=== PATIENT | female | born 1980 | race African-American/Black ===

== ENCOUNTER 2017-08-10 12:39 | Emergency (ER) | payer OTHER ==
[2017-08-10 12:55] VITALS: BP 121/63; PULSE 90; RESP 16; TEMP 98.1; O2SAT 99
--- NOTE | 2017-08-10 13:11 | RADRPT ---
EXAM DATE: 08/10/2017 1:09 PM EDT AGE/SEX: 36 years / Female INDICATIONS: Left ankle pain, fell CLINICAL DATA: This is the patient's initial encounter. Patient reports that signs and symptoms have been present for 1 day and indicates a pain score of 10/10. MEDICAL/SURGICAL HISTORY: None. None. COMPARISON: No prior exams available for comparison. FINDINGS: Bony structures are intact and in normal alignment. Joints are intact without dislocation or signifi cant arthropathy. Osseous density is normal. Soft tissues are unremarkable. No radiopaque foreign bodies seen. CONCLUSION: No evidence of recent bony injury. Electronically signed by: Bony Newton MD 08/10/2017 1:10 PM EDT
--- NOTE | 2017-08-10 14:51 | PD ---
HPI . Ankle injury Chief Complaint: Injury Time Seen by Provider: 14:43 Travel History International Travel<30 days: No Contact w/Intl Traveler<30days: No Traveled to known affect area: No History of Present Illness HPI Patient presents with a chief complaint of left ankle injury. It occurred at about 4 in the morning, about 11 hours ago. She states that she was walking down some steps and felt that she was at the bottom but really had one stepped ago. This caused her to fall and probably twisted her ankle. She states that it really did not hurt initially. It started hurting later. She has treated it with ice and elevation. Her pain is persisted causing her to present to us this afternoon. She currently rates her pain at 7/10. She does have an associated abrasion on the lateral ankle. [facility] Social History Tobacco Use: No Allergies-Medications (Allergen,Severity, Reaction): Coded Allergies: Sulfa (Sulfonamide Antibiotics) (Verified Allergy, Unknown, 08/10/17) Review of Systems Except as stated in HPI: all other systems reviewed are Neg Physical Exam Narrative GENERAL: Awake and alert and in no acute distress. SKIN: Warm and dry. Normal color and turgor. Scabbed, superficial abrasion on the left lateral ankle. HEAD: Normocephalic/atraumatic. EYES: Pupils are equal. Extraocular movements are intact. NECK: Normal range of motion. Supple. CARDIOVASCULAR: Regular rate and rhythm. RESPIRATORY: Nonlabored respirations. Normal sats. MUSCULOSKELETAL: Atraumatic. Normal muscle tone. Left ankle has no bruising, swelling or deformity. It is diffusely tender. It is stable. Distally neurovascularly intact. NEUROLOGICAL: A and O 3. Nonfocal. PSYCHIATRIC: Appropriate mood and affect. Data Data Last Documented VS Vital Signs Date Time Temp Pulse Resp B/P (MAP) Pulse Ox O2 Delivery O2 Flow Rate FiO2 08/10/17 12:55 98.1 90 16 121/63 (82) 99 Orders Orders Ankle, Complete ([id number]) (08/10/17 ) [facility] Medical Decision Making Medical Screen Exam Complete: Yes Emergency Medical Condition: Yes Differential Diagnosis Differential diagnosis of extremity trauma includes but is not limited to fracture, sprain or strain, dislocation, contusion Narrative Course Patient presents for the evaluation of left ankle injury. The ankle looks normal. No swelling, bruising or deformity. It is stable. Distally neurovascularly intact. Last Impressions Ankle X-Ray 08/10/17 0000 Signed Impressions: CONCLUSION: No evidence of recent bony injury. The x-ray was independently reviewed by me. She will be discharged home with instructions in [facility]. Diagnosis Primary Impression: Left ankle sprain Qualified Codes: S93.402A - Sprain of unspecified ligament of left ankle, initial encounter Patient Instructions: Ankle Sprain (DC), General Instructions, [facility] (ED ) Disposition: 01 DISCHARGE HOME Condition: Stable Macy Lackey MD Aug 10, 2017 14:51
[2017-08-10] MEDS ORDERED: IBUPROFEN 800 MG TAB PO ONE (15:00)
== END 2017-08-10 15:27 | disposition home or self-care (01) ==
LOC: NEPD 12:39
DX: S93.402A Sprain of unspecified ligament of left ankle, initial encounter (principal); W10.9XXA Fall (on) (from) unspecified stairs and steps, initial encounter; Z88.2 Allergy status to sulfonamides
CPT/HCPCS: 73610; 99283; E0113